=== PATIENT | male | born 1960 | race Caucasian/White ===

== ENCOUNTER → 2024-03-29 07:51 | Outpatient (REF) | payer OTHER, SELFPAY ==
[2024-03-29 08:00] VITALS: BP 119/66; BP_SYST 60
== END ==
LOC: RADI 07:51
PROVIDERS: ATTENDING PHYSICIAN Internal Medicine Endocrinology, Diabetes & Metabolism; FAMILY PHYSICIAN Family Medicine
DX: E04.1 Nontoxic single thyroid nodule (principal)
CPT/HCPCS: 88173; 10005